=== PATIENT | male | born 1995 | race Caucasian/White ===

== ENCOUNTER 2017-08-31 15:14 | Emergency (ER) | payer SELFPAY ==
[~2017-08-31] VITALS: Ht 177.8 cm; Wt 72.2 kg
[2017-08-31 16:53] VITALS: BP 119/74
== END 2017-08-31 16:53 | disposition home or self-care (01) ==
LOC: ED 15:14
DX: L30.9 Dermatitis, unspecified (principal); N50.82 Scrotal pain
CPT/HCPCS: Q0092